=== PATIENT | male | born 1960 | race Caucasian/White ===

== ENCOUNTER 2018-05-30 03:38 | Observation (INO) | payer OTHER, BC ==
[2018-05-30 04:13] LABS: #Basophils 0.1 thou/uL (0.0-0.2); #Eosinphils 0.2 thou/uL (0.0-0.7); #Monocytes 0.3 thou/uL (0.11-0.59); #Neutrophils 4.1 thou/uL (1.40-6.50); %Basophils 1.4 % (0.0-1.0); %Eosinophils 2.5 % (0.0-10.0); %Lymphocytes 29.6 % (21.0-51.0); %Monocytes 4.8 % (0.0-10.0); %Neutrophils 61.7 % (42.0-75.0); Hemoglobin 16.7 g/dL (14.0-18.0); Mean Corpuscular HGB CONC 33.6 g/dL (32.0-36.0); Mean Corpuscular Hemoglobin 31.9 pg (27.0-31.0); Mean Corpuscular Volume 94.9 fL (78.0-98.0); Mean Platelet Volume 8.8 fL (7.4-10.4); Platelet Count 220 thou/uL (130-400); RBC Distribution Width 12.4 % (11.5-14.5); Red Blood Cell (RBC) Count 5.23 mill/uL (4.70-6.10); White Blood Cell (WBC) Count 6.7 thou/uL (4.8-10.8)
[2018-05-30] MEDS ORDERED: Acetaminophen 500 MG TAB ONE (04:19)
[2018-05-30 04:35] LABS: Acetaminophen Less than 6.0 mcg/mL (10.0-30.0); Alcohol Less than 10 mg/dL (Less than 10); Salicylate Less than 8.0 mg/dL (15.0-30.0)
[2018-05-30 04:37] LABS: ALT (SGPT) 28 U/L (8-55); AST (SGOT) 24 U/L (5-34); Albumin 4.5 g/dL (3.5-5.0); Alkaline Phosphatase 106 U/L (40-150); Anion Gap 13 mmol/L (10-20); BUN (Urea Nitrogen) 21 mg/dL (8.4-25.7); Calc. Creatinine Clearance 0 mL/min (70-130); Calcium 10.2 mg/dL (7.8-10.44); Carbon Dioxide 21 mmol/L (22-29); Chloride 107 mmol/L (98-107); Estimated GFR-MDRD 65; Globulin 2.7 g/dL (2.4-3.5); Glucose 126 mg/dL (70-105); Potassium 3.4 mmol/L (3.5-5.1); Protein, Total 7.2 g/dL (6.0-8.3); Sodium 138 mmol/L (136-145)
[2018-05-30 05:44] LABS: Bilirubin Negative (Negative); Blood, Urine Small (Negative); Clarity CLEAR (Clear); Glucose, Urine (Dipstick) Negative (Negative); Leukocyte Negative (Negative); Nitrite Negative (Negative); Protein, Urine (Dipstick) 30 mg/dL (Neg-Trace); Specific Gravity, Urine 1.016 (1.002-1.036); Urobilinogen 0.2 mg/dL (0.2-1.0)
[2018-05-30 05:47] LABS: Bacteria/HPF None Seen HPF (None Seen); Hyaline Casts/LPF 0-3 HYALINE CAST LPF (0-3 Hyaline); RBC/HPF 0-3 HPF (0-3); Squamous Epithelial None Seen HPF (0-3); WBC/HPF 0-3 HPF (0-3)
[2018-05-30 06:15] LABS: Amphetamine Not Detected (NotDetected); Barbiturates Screen Not Detected (NotDetected); Benzodiazepine Screen Not Detected (NotDetected); Cocaine Metabolite Screen Not Detected (NotDetected); Medtox Control Line Valid? VALID (VALID); Medtox Reader # READER 4; Methadone Not Detected (NotDetected); Methamphetamine Not Detected (NotDetected); Opiate Screen Not Detected (NotDetected); Oxycodone Screen Not Detected (NotDetected); Phencyclidine (PCP) Not Detected (NotDetected); THC/Cannabinoid Screen Not Detected (NotDetected); Tricyclic Screen Not Detected (NotDetected)
--- NOTE | 2018-05-30 07:23 | CT ---
CT OF THE BRAIN WITHOUT CONTRAST: Date: 05/30/18 INDICATION: History of seizures. COMPARISON: Prior dated 05/14/05. FINDINGS: No acute infarct, hemorrhage, or hydrocephalus is present. The septum pellucidum and third ventricle are midline. The skull and extracranial soft tissues appear within normal limits. IMPRESSION: No acute intracranial abnormality. POS: BH
[2018-05-30] MEDS ORDERED: Ondansetron PF 4 MG/2 ML Vial IVP PRN (08:24)
--- NOTE | 2018-05-30 08:43 | RAD ---
EXAM: Portable chest PROVIDED CLINICAL HISTORY: Inspiratory crackles COMPARISON: 05/14/2005 FINDINGS: Cardiac and mediastinal silhouette is within normal limits. No focal consolidation, pleural fluid or pneumothorax evident. IMPRESSION: No evidence for an acute cardiopulmonary process.
[2018-05-30] MEDS ORDERED: Acetaminophen 325 MG TAB ONE (09:20)
[2018-05-30] MEDS: Acetaminophen 325 MG TAB PO PRN ×4 (09:26→21:49)
[2018-05-30] MEDS ORDERED: levETIRAcetam 500 MG/100 ML PREMIX BAG ONE (11:24)
--- NOTE | 2018-05-30 11:51 | MRI ---
MRI BRAIN WITHOUT CONTRAST: Date: 05/30/18 INDICATION: History of new onset seizures. COMPARISON: CT brain without contrast dated 05/30/18 at 0442 hours. FINDINGS: When reviewing the ADC and DWI images, no focal region of restricted diffusion is evident to suggest the presence of acute ischemia. The septum pellucidum and third ventricle are midline. There are appr opriate flow-voids seen within the major intracranial arteries. There are small foci of T2 signal abn ormality, predominantly hyperintense, involving the subcortical and periventricular white matter like ly reflecting sequelae of mild chronic small vessel white matter ischemic change. The skull and extra cranial soft tissues appear within normal limits. IMPRESSION: 1. No acute intracranial abnormality seen. 2. Mild chronic small vessel white matter ischemic change. POS: BH
[2018-05-30 12:53] VITALS: BMI 29.5
--- NOTE | 2018-05-30 15:38 | HP ---
CHIEF COMPLAINT: Seizure. HISTORY OF PRESENT ILLNESS: The patient is a very pleasant 58-year-old male with past medical history significant for questionable seizure back in 2004 , who presented to the hospital via EMS after suffering a seizure at home in bed. The seizure was witnessed by his and occurred about 3 a.m. She states that she was sleeping when she felt a kick from her . She woke up and her was actively seizing. She reported typical tonic-clonic seizure activity, the patient's eyes were rolled back, and he was not responding to her. She called EMS, who brought him to the hospital. En route, the patient's seizure activity did resolve and he became conscious. By the time he arrived to the hospital, he had some mild postictal complaints such as some back soreness. His Kathleen Coma Scale was 15. He did not require any Keppra or Ativan. Upon arrival to the ER, workup thus far has included a brain CT, which showed no acute intercranial abnormalities. The patient is nontoxic. He has no white count and no fever. He reports no recent illnesses. The day prior to his seizure, the patient did feel fine. He woke up and mowed the yard. He went bowling with his daughters and friends. He reported that the night before he had the seizure, he around 9:30 p.m. may have had an odd sensation in his neck and head like tingling, but it resolved on its own prior to going to sleep. REVIEW OF SYSTEMS: Twelve-point review of systems performed and is negative, except that stated above. The patient appears very healthy. He has had no recent illnesses. No blood in urine or stool. No fevers, chills, coughs, or flu. No sick contacts. ALLERGIES: NO KNOWN DRUG ALLERGIES. HOME MEDICATIONS: Ocvg-fan-xnpdcyc fish oil. PAST MEDICAL HISTORY: Questionable seizure back in 2004. The patient states that he was at work when the incident occurred. He was using an aerosol can to clean his workstation and keyboard. At that time, he felt that the exposure to propellant in the aerosol can caused his symptoms. He was found on the floor of his office. Interestingly, at that time, he also had a bite on his tongue. SOCIAL HISTORY: The patient has never smoked. He drinks socially. No illicit drug use. 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 He has 3 daughters and 2 grandchildren. FAMILY HISTORY: Positive for stroke in his father at the age of 48, who was a smoker. His father is still living and is 91 years old. His mother of lung cancer. There is no history of diabetes, hypertension, or ME. Code status, the patient is a full code. This was discussed with the patient. PAST SURGICAL HISTORY: The patient did have a colonoscopy and was told to repeat it in 10 years. He has had an I and D performed on his left index finger. PHYSICAL EXAMINATION: BP: 129/85, P=61, O2 sat 98% RA GENERAL: The patient is alert and oriented x3, sitting up in bed, looking well. HEENT: Head is atraumatic and normocephalic. Extraocular movements intact. He does have an abrasion and ecchymosis at the tip of his tongue. NECK: Trachea is midline. No JVD. No carotid bruits. Trachea is midline. RESPIRATORY: Regular respiratory rate and pattern, overall clear. He does have some faint inspiratory crackles at the bases. ABDOMEN: Soft, nontender. Positive bowel sounds. No masses. No guarding or rebound. SKIN: Warm and dry. No rashes. No lesions. No evidence of cellulitis or infection. EXTREMITIES: Lower extremities are warm and well perfused. +2 DP pulses bilaterally. No edema. CV: S1 and S2. Regular rate and rhythm. No appreciable murmurs, rubs or gallops. NEURO: Cranial nerves 2 through 12 are intact. The patient is nonfocal. LABORATORY DATA: White blood cell count 6.7, hemoglobin 16.7, hematocrit 49.7, platelets 220. Sodium 138, potassium 3.4, chloride 107, carbon dioxide 21, anion gap 13, BUN 21, creatinine 1.15. Liver function tests within normal limits. IMAGING STUDIES: His EKG shows normal sinus rhythm, no ST or T-wave changes. Imaging CT of the head shows no intracranial abnormalities. ASSESSMENT: 1. Witnessed tonic-clonic seizure, unclear etiology. 2. History of questionable seizure back in 2004. PLAN: We will obtain MRI and consult Neurology. He has seen Dr. Navarro in the past. Prolactin level is pending. The patient is nontoxic at this point and lab work is largely unremarkable. Further recommendations based on findings of MRI, and we will await Neurology consult. Care has been discussed with Dr. Phillips, who agrees with the above. Job ID: [id number] [facility]
--- NOTE | 2018-05-31 00:11 | CON ---
DATE OF CONSULTATION: 05/30/2018 CHIEF COMPLAINT: Seizure. HISTORY OF PRESENT ILLNESS: The patient is a 58-year-old man, who was sleeping, he was kicking his , and she could not wake him up. She thought he had a seizure. In 2005, he had a similar event at work. He was in the room. 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 He did see Dr. Navarro in the past at that time. PREVIOUS MEDICAL HISTORY: Pretty healthy otherwise other than the recent finger infection. He does competitive swimming as well. SOCIAL HISTORY: Does not smoke. He drinks socially. No drug use. He currently works and does not do the safety work anymore. PAST SURGICAL HISTORY: He had infection in the left middle finger and had to have surgery. HOME MEDICATIONS: He takes, 1. Fish oil. 2. Occasional vitamin C. REVIEW OF SYSTEMS: PULMONARY: Negative for shortness of breath or cough. CARDIOVASCULAR: Negative for chest pain or palpitations. GI: Negative for any stomach issues such as vomiting, diarrhea, or nausea. HEMATOLOGIC: Negative for bleeding diathesis. NEUROLOGICAL: Positive for seizure. DERMATOLOGIC: Negative for rash or itching. LABORATORY DATA AND DIAGNOSTIC STUDIES: Current lab workup white count 6.7, hemoglobin 16.7, hematocrit 49.7, platelets 220. Sodium 138, potassium 3.4, chloride 107, bicarb 21, BUN 21, creatinine 1.15, glucose 126. Liver functions were normal. Prolactin . Urinalysis is negative. Urine tox negative. He also completed his MRI of the brain today and MRI did not show any acute intracranial abnormality, but he had mild chronic ischemic vascular changes. PHYSICAL EXAMINATION: VITAL SIGNS: Blood pressure was 165/88, temperature 98.5, pulse 56, and respiratory rate 18. GENERAL: Well-built, well-nourished man, who appears comfortable. CHEST: Clear vesicular breathing. CARDIOVASCULAR: S1 and S2 heard. No murmurs. ABDOMEN: Soft and nontender. NEUROLOGICAL: Higher intellectual functions are normal. Cranial nerves, pupils 2 mm, reactive to light. Normal extraocular movements. No facial asymmetry noted. Normal sensation of face. Normal hearing to finger rub bilaterally. Normal elevation of palate. Tongue midline. No atrophy noted. Motor; bulk normal, tone normal, strength 5/5 in upper and lower extremities in iliopsoas, hamstrings, quadriceps, ankle dorsiflexion, plantar flexion, deltoid, biceps, triceps, wrist extension and flexion, finger extension and flexion bilaterally. Deep tendon reflexes were normal and 2+ throughout in upper and lower extremities. Sensory normal to touch. Cerebellar, normal [id number], [id number]. Gait not tested. IMPRESSION: The patient is a 58-year-old man with history of seizure. He had event in 2005, thought to be due to exposure to complex partial seizure versus dizziness; however, this is a second event, especially during sleep, which is higher risk than regular seizures and partial seizures. His MRI scan is negative. His neurological examination is normal. At this time, I think it is barker to start him on antiepileptic agents. RECOMMENDATIONS: Keppra b.i.d. at 500 mg and I will request EEG and he can see Dr. Navarro as needed. Please call Neurology if you have any further questions tomorrow. Job ID: [id number]
[2018-05-31] MEDS: Acetaminophen 325 MG TAB PO PRN ×3 (01:50→12:47)
[2018-05-31] MEDS ORDERED: tiZANidine HCl 4 MG TAB PO PRN (02:33)
[2018-05-31 05:57] LABS: Anion Gap 8 mmol/L (10-20); BUN (Urea Nitrogen) 14 mg/dL (8.4-25.7); Calc. Creatinine Clearance 124 mL/min (70-130); Calcium 9.6 mg/dL (7.8-10.44); Carbon Dioxide 25 mmol/L (22-29); Chloride 109 mmol/L (98-107); Estimated GFR-MDRD Greater than 90; Glucose 93 mg/dL (70-105); Potassium 3.9 mmol/L (3.5-5.1); Sodium 138 mmol/L (136-145)
[2018-05-31] MEDS: tiZANidine HCl 4 MG TAB PO SCH ×2 (08:15→14:56)
[2018-05-31 11:17] VITALS: TEMP 97.8
[2018-05-31] MEDS ORDERED: Lidocaine Patch Removal 1 EACH TOP SCH (14:15)
[2018-05-31] MEDS ORDERED: Ketorolac Tromethamine 30 MG/ML VIAL IVP SCH (14:30)
[2018-05-31 15:48] VITALS: BP 130/79
[2018-05-31] MEDS ORDERED: Lidocaine 5% Patch TD SCH (16:45)
[2018-06-01] MEDS ORDERED: Lidocaine 5% Patch TD SCH (09:00)
--- NOTE | 2018-06-01 09:45 | EEG ---
Referring Physician: Magalys THOMPSON EEG # [id number] TEST TYPE: ROUTINE PORTABLE INPATIENT REPORT: AN EEG USING THE INTERNATIONAL TEN-TWENTY SYSTEM OF ELECTRODE PLACEMENT WAS PERFORMED. The waking background rhythm is a medium amplitude 9 hertz frequency. The patient became drowsy, but no sleep was seen. Hyperventilation and photic stimulation were unremarkable. No epileptiform features were seen. IMPRESSION: THIS IS A NORMAL AWAKE AND DROWSY EEG. [employer] Specialist: HELEN Clay Molder: [email or web address]
== END 2018-05-31 17:37 | disposition home or self-care (01) ==
LOC: ERS 03:38 → ERHOLD 05:46 → 2SE 12:15
PROVIDERS: ADMIT Internal Medicine; ATTEND Internal Medicine
DX: G40.409 Other generalized epilepsy and epileptic syndromes, not intractable, without status epilepticus (principal); Z79.899 Other long term (current) drug therapy
CPT/HCPCS: 36415; 70450; 70551; 71045; 80048; 80053; 80306; 80307; 81003; 81015; 84146; 85025; 93005; 95816; 95819; 96360; 96361; 96365; 96375; 96376; G0378; J1885; J1953

== ENCOUNTER 2018-06-29 19:30 | Outpatient (CLI) | payer OTHER, BC | END 2018-06-29 19:31 | disposition home or self-care (01) | LOC: SLEEPLAB 19:30 | PROVIDERS: ATTEND Specialist | DX: G47.33 Obstructive sleep apnea (adult) (pediatric) (principal); G47.9 Sleep disorder, unspecified; R53.83 Other fatigue; R09.89 Other specified symptoms and signs involving the circulatory and respiratory systems; G31.84 Mild cognitive impairment of uncertain or unknown etiology; R56.9 Unspecified convulsions; I10 Essential (primary) hypertension; R06.83 Snoring; G47.00 Insomnia, unspecified; G47.10 Hypersomnia, unspecified; G47.61 Periodic limb movement disorder | CPT/HCPCS: 95810 ==

== ENCOUNTER 2018-08-30 20:30 | Outpatient (CLI) | payer OTHER, BC | END 2018-08-30 20:31 | disposition home or self-care (01) | LOC: SLEEPLAB 20:30 | PROVIDERS: ATTEND Specialist | DX: G47.33 Obstructive sleep apnea (adult) (pediatric) (principal); G47.10 Hypersomnia, unspecified; G47.61 Periodic limb movement disorder; R53.83 Other fatigue; R09.89 Other specified symptoms and signs involving the circulatory and respiratory systems; G31.84 Mild cognitive impairment of uncertain or unknown etiology; I63.9 Cerebral infarction, unspecified; R06.83 Snoring; I10 Essential (primary) hypertension; E66.9 Obesity, unspecified; Z68.28 Body mass index [BMI] 28.0-28.9, adult | CPT/HCPCS: 95811 ==